=== PATIENT | male | born 1990 | race Caucasian/White ===

== ENCOUNTER 2020-11-14 23:05 | Observation (INO) ==
[2020-11-14 23:46] LABS: Bilirubin,Urine Negative (Negative); Blood,Urine Negative (Negative); Clarity,Urine Clear (Clear); Color,Urine Yellow (Yellow); Glucose,Urine (UA) Normal (Normal); Ketones,Urine Negative (Negative); Leukocyte Esterase,Urine Negative (Negative); Nitrite,Urine Negative (Negative); Protein,Urine Trace mg/dL (Neg-Trace); Specific Gravity,Urine > 1.030 (1.010-1.025)
[2020-11-15] LABS: Basophils # 0.1 K/mcL (0.0-0.2); Basophils % 0.5 %; Eosinophils # 0.3 K/mcL (0.0-0.6); Eosinophils % 1.8 %; Hematocrit 41.3 % (37.5-50.1); Hemoglobin 13.7 g/dL (12.9-16.9); Immature Granulocytes % 0.6 % (0-4); Lymphocytes # 4.7 K/mcL (0.6-4.6); Lymphocytes % 26.7 %; Mean Corpuscular HGB Conc 33.2 g/dL (31.6-35.5); Mean Corpuscular Hemoglobin 29.8 pg (28.0-33.3); Monocytes # 1.9 K/mcL (0.0-1.3); Monocytes % 11.1 %; Neutrophils # 10.4 K/mcL (1.6-8.9); Platelet Count 241 K/mcL (140-400); Red Blood Count 4.59 M/mcL (4.19-5.50); Red Cell Distribution Width 13.5 % (11.5-14.5); Segmented Neutrophils % 59.3 %; White Blood Count 17.5 K/mcL (4.3-11.1)
[2020-11-15 00:15] LABS: Alanine Aminotransferase 17 Units/L (7-52); Albumin 4.1 g/dL (3.5-5.7); Albumin/Globulin Ratio 1.3 (1.1-2.2); Alkaline Phosphatase 49 Units/L (34-104); Aspartate Amino Transferase 19 Units/L (13-39); BUN/Creatinine Ratio 15 (6-26); Bilirubin,Direct 0.1 mg/dL (0.0-0.2); Bilirubin,Indirect 0.2 mg/dL (0.0-1.0); Bilirubin,Total 0.3 mg/dL (0.3-1.0); Blood Urea Nitrogen 17 mg/dL (6-20); Calcium 9.3 mg/dL (8.6-10.3); Carbon Dioxide 27 mEq/L (23-29); Chloride 104 mEq/L (98-107); Globulin 3.1 g/dL (2.4-3.5); Glucose 105 mg/dL (70-105); Lipase 27 Units/L (11-82); Osmolality,Calculated 288 (280-300); Potassium 3.6 mEq/L (3.5-5.1); Sodium 138 mEq/L (136-145); Total Protein 7.2 g/dL (6.4-8.9); eGFR For African Americans > 60 (> 60); eGFR For Non-African Americans > 60 (> 60)
[2020-11-15 00:36] LABS: Platelet Estimate Normal (Normal)
[2020-11-15] MEDS ORDERED: 0.9 % Sodium Chloride 1,000 ML IVC ONE (00:37)
[2020-11-15] MEDS ORDERED: Isovue-370 500 ML BOTTLE IVP ONE (00:38)
[2020-11-15] MEDS ORDERED: Piperacillin/Tazobactam 3.375 GM in 0.9 % Sodium Chloride Mini Bag 100 ML IVPB ONE (02:27)
[2020-11-15] MEDS ORDERED: Morphine Sulfate 2 MG/ML SYRINGE IVP ONE (02:27)
[2020-11-15] MEDS ORDERED: Ondansetron 4 MG/2 ML VIAL IM ONE (02:27)
[2020-11-15] MEDS ORDERED: Ondansetron 4 MG/2 ML VIAL IVP ONE (02:36)
[2020-11-15] MEDS ORDERED: *HR* OxyCODONE/APAP 5/325 TABLET PO PRN (04:21)
[2020-11-15] MEDS ORDERED: Ondansetron 4 MG/2 ML VIAL IVP PRN ×2 (04:21→11:32)
[2020-11-15] MEDS ORDERED: *HR* FentaNYL (PF) 100 MCG/2 ML VIAL ONE (08:39)
[2020-11-15] MEDS ORDERED: *HR* Propofol 200 MG/20 ML VIAL IVP ONE (08:39)
[2020-11-15] MEDS ORDERED: *HR* Midazolam HCl 2 MG/2 ML VIAL ONE (08:39)
[2020-11-15] MEDS ORDERED: Dexamethasone 4 MG/ML VIAL ONE (08:41)
[2020-11-15] MEDS ORDERED: Ondansetron 4 MG/2 ML VIAL ONE (08:41)
[2020-11-15] MEDS ORDERED: *HR* Succinylcholine 200 MG/10 ML VIAL IVP ONE (08:41)
[2020-11-15] MEDS ORDERED: *HR* Rocuronium Bromide 50 MG/5 ML VIAL ONE (08:41)
[2020-11-15] MEDS ORDERED: Lidocaine -MPF 2% 2 ML VIAL ONE (08:41)
[2020-11-15] MEDS ORDERED: Lidocaine HCL 4 ML Topical Solution (Laryng-O-Jet Kit Sterile Pak) TP ONE (08:41)
[2020-11-15] MEDS ORDERED: *HR* HYDROMORPHONE 2 MG/ML VIAL ONE (09:03)
[2020-11-15] MEDS ORDERED: *HR* OxyCODONE Immed Rel 5 MG TABLET PO PRN (09:17)
[2020-11-15] MEDS ORDERED: *HR* HYDROmorphone (PF) 1 MG/ML SYRINGE IVP PRN (09:17)
[2020-11-15] MEDS ORDERED: CefOXitin 1,000 MG VIAL ONE (09:20)
[2020-11-15] MEDS ORDERED: Ketorolac 30 MG/ML VIAL ONE (09:55)
[2020-11-15] MEDS ORDERED: cefOXitin 1,000 MG, 0.9 % Sodium Chloride 1,000 ML IR ONE ×2 (10:00→11:32)
[2020-11-15] MEDS ORDERED: Sugammadex Sodium 200 MG/2 ML VIAL IV ONE (10:07)
[2020-11-15] MEDS ORDERED: Piperacillin/Tazobactam 3.375 GM in 0.9 % Sodium Chloride Mini Bag 100 ML IVPB SCH (11:00)
[2020-11-15] MEDS: Piperacillin/Tazobactam 3.375 GM in 0.9 % Sodium Chloride Mini Bag 100 ML IVPB SCH ×2 (12:28→19:40)
[2020-11-15] MEDS: *HR* OxyCODONE/APAP 5/325 TABLET PO PRN (18:08)
[2020-11-15] MEDS ORDERED: Nicotine 21 MG PATCH.TD24 TD SCH (18:15)
[2020-11-16] MEDS ORDERED: Piperacillin/Tazobactam 3.375 GM VIAL ONE (03:19)
[2020-11-16] MEDS: Piperacillin/Tazobactam 3.375 GM in 0.9 % Sodium Chloride Mini Bag 100 ML IVPB SCH (03:32)
[2020-11-16 07:21] VITALS: BP 110/64
[2020-11-16] MEDS: *HR* OxyCODONE/APAP 5/325 TABLET PO PRN (07:57)
== END 2020-11-16 11:31 | disposition home or self-care (01) ==
LOC: 3ANU 23:05 → EMEROOARM 23:05 → 3ANU 11-15 03:46
PROVIDERS: ADMIT Surgery; ATTEND Surgery